=== PATIENT | male | born 1990 | race African-American/Black ===

== ENCOUNTER 2017-07-30 16:58 | Emergency (ER) | payer SELFPAY ==
--- NOTE | 2017-07-30 17:30 | NUR ---
pt stable condition no available beds
--- NOTE | 2017-07-30 18:03 | NUR ---
called in waiting room no answer
--- NOTE | 2017-07-30 18:03 | NUR ---
Patient left without being seen by ER Physician
== END 2017-07-30 18:20 | disposition left against medical advice (07) ==
LOC: ER 17:02
DX: Z53.21 Procedure and treatment not carried out due to patient leaving prior to being seen by health care provider (principal)